=== PATIENT | female | born 1970 | race African-American/Black ===

== ENCOUNTER 2022-07-06 10:16 | Day surgery (SDC) | payer MEDICAID ==
[~2022-07-06] VITALS: Ht 167.6 cm; Wt 79.8 kg
[2022-07-06] MEDS ORDERED: LIDOCAINE 2% 100 MG/5 ML UJET TP ONE (12:56)
[2022-07-06] MEDS ORDERED: fentaNYL citrate 0.05 MG/ML VIAL ONE (12:56)
[2022-07-06] MEDS ORDERED: fentaNYL citrate 0.05 MG/ML VIAL IVP ONE (13:35)
== END 2022-07-06 14:00 | disposition home or self-care (01) ==
LOC: MDS 10:16 → MMU 10:31 → MDS 14:00
PROVIDERS: ATTEND Internal Medicine Gastroenterology
DX: Z12.11 Encounter for screening for malignant neoplasm of colon (principal); K64.9 Unspecified hemorrhoids; I10 Essential (primary) hypertension; Z80.42 Family history of malignant neoplasm of prostate; Z79.899 Other long term (current) drug therapy
CPT/HCPCS: 45378; J3010